=== PATIENT | male | born 1960 | race Caucasian/White ===

== ENCOUNTER 2019-09-24 17:06 | Emergency (ER) | payer OTHER, SELFPAY ==
[~2019-09-24] VITALS: Ht 193 cm; Wt 92.1 kg
[2019-09-24 17:22] VITALS: BP_SYST 128
--- NOTE | 2019-09-24 17:52 | NUR ---
Patient to ER bed 05 to gown for evaluation. Side rails up.
--- NOTE | 2019-09-24 18:06 | NUR ---
Pt came to ER with complaint of SOB, fatigue, dizziness, memory loss over the course of the last few weeks. Pt VSS, no distress noted, resting in [facility] at this time.
--- NOTE | 2019-09-24 18:10 | NUR ---
KRISTEN Feldman at bedside examining patient.
[2019-09-24 18:58] LABS: BASOPHILS # (AUTO) 0.1 K/uL (0.0-0.2); BASOPHILS % (AUTO) 1.2 % (0.0-2.0); EOSINOPHILS # (AUTO) 0.2 K/uL (0.0-0.4); EOSINOPHILS % (AUTO) 3.6 % (0.0-4.0); HEMATOCRIT 37.6 % (36-54); HEMOGLOBIN 12.4 g/dL (14.0-18.0); LYMPHOCYTES # (AUTO) 1.3 K/uL (1.0-5.5); LYMPHOCYTES % (AUTO) 18.6 % (20.5-51.5); MEAN CORPUSCULAR HEMOGLOBIN 32 pg (27-31); MEAN CORPUSCULAR HGB CONC 33 % (32-36); MEAN CORPUSCULAR VOLUME 97 fL (79.0-98.0); MONOCYTES # (AUTO) 0.8 K/uL (0.0-1.0); MONOCYTES % (AUTO) 12.3 % (1.7-9.3); NEUTROPHILS # (AUTO) 4.4 K/uL (1.8-7.7); NEUTROPHILS % (AUTO) 64.3 % (40.0-70.0); PLATELET COUNT (AUTO) 224 K/uL (130-430); RED BLOOD CELL COUNT(AUTO) 3.89 MIL/uL (4.2-6.2); RED CELL DISTRIBUTION WIDTH 13.5 % (9.0-15.0); WHITE BLOOD COUNT (AUTO) 6.8 K/uL (4.8-10.8)
[2019-09-24 19:04] LABS: ANION GAP 7 (5-15); CALCIUM 9.4 mg/dL (8.4-11.0); CHLORIDE 103 mmol/L (98-107); CREATININE 1.07 mg/dL (0.55-1.30); GLUCOSE 121 mg/dL (70-99); POTASSIUM 4.2 mmol/L (3.5-5.1); SODIUM SERUM 140 mmol/L (136-145); UREA NITROGEN, BLOOD 10 mg/dL (8-21)
[2019-09-24 19:13] LABS: GFR AFRICAN AMERICAN 91 mL/min (>90)
--- NOTE | 2019-09-24 19:15 | NUR ---
RECIEVED REPORT. AWAKE AND ALERT. NO SOB.
[2019-09-24 19:18] LABS: ALANINE AMINOTRANSFERASE 97 U/L (12-78); ALBUMIN 3.2 g/dL (3.4-4.8); ASPARTATE AMINOTRANSFERASE 63 U/L (10-37); FREE T4 (FREE THYROXINE) 1.6 ng/dl (0.8-1.5); THYROID STIMULATING HORMONE 3.84 uIu/mL (0.36-3.74); TOTAL BILIRUBIN 0.8 mg/dL (0.0-1.0)
[2019-09-24 20:26] LABS: BILIRUBIN,URINE NEGATIVE (NEGATIVE); BLOOD, URINE NEGATIVE (NEGATIVE); CLARITY/URINE CLEAR (CLEAR); COLOR,URINE STRAW (YELLOW); GLUCOSE,URINE NEGATIVE (NEGATIVE); KETONES,URINE NEGATIVE (NEGATIVE); LEUKOCYTE ESTERASE ,URINE NEGATIVE (NEGATIVE); NITRITE, URINE NEGATIVE (NEGATIVE); PROTEIN URINE NEGATIVE (NEGATIVE); UROBILINOGEN,URINE 0.2 (0.2-1.0)
--- NOTE | 2019-09-24 20:40 | NUR ---
PT RESTING WELL. DENIES ANY PAIN OR DISTRESS. ORIENTED TO USE THE CALL LIGHT IF HE NEEDS ANYTHING.
--- NOTE | 2019-09-24 21:52 | NUR ---
PT IN ROOM. GETTING ULTRASOUND AT THIS TIME.
[2019-09-24 22:18] VITALS: BP_SYST 128
--- NOTE | 2019-09-24 22:18 | NUR ---
Patient given written and verbal discharge instructions and verbalizes understanding. ER MD ESCALERA discussed with patient the results and treatment provided. Patient in stable condition. ID arm band removed. Rx of given. Patient educated on pain management and to follow up with PMD. Pain Scale 1/10. Opportunity for questions provided and answered. Medication side effect fact sheet provided.
== END 2019-09-24 22:18 | disposition home or self-care (01) ==
LOC: SED 17:06
DX: R06.02 Shortness of breath (principal); R53.83 Other fatigue; R60.9 Edema, unspecified; Z20.828 Contact with and (suspected) exposure to other viral communicable diseases
CPT/HCPCS: 36415; 71045; 80053; 81003; 83880; 84439; 84443; 84484; 85025; 93005; 93970; 99285; U0003